=== PATIENT | female | born 2000 | race Caucasian/White ===

== ENCOUNTER 2020-05-21 13:33 | Emergency (ER) | payer OTHER, SELFPAY ==
[2020-05-21 14:13] VITALS: BP 122/63; PULSE 64; RESP 16; TEMP 36.6; O2SAT 99; BMI 39.3
--- NOTE | 2020-05-21 15:28 | XR_ITS ---
EXAMINATION: XR CHEST CLINICAL INFORMATION: Chest pain COMPARISON: None TECHNIQUE: 2 views of the chest were obtained. FINDINGS: No significant abnormality is noted involving the heart, lungs, mediastinum, bony thorax or soft tissues. XR/XR chest 2V IMPRESSION: Unremarkable chest exam
--- NOTE | 2020-05-21 15:28 | ECG_ITS ---
Test Reason : CHEST PAIN Blood Pressure : / mmHG Vent. Rate : 059 BPM Atrial Rate : 059 BPM P-R Int : 154 ms QRS Dur : 102 ms QT Int : 430 ms P-R-T Axes : 004 031 027 degrees QTc Int : 425 ms Sinus bradycardia Otherwise normal ECG No previous ECGs available Referred By: Naren Tolbert Electronically Signed By:Gabriel Watt
--- NOTE | 2020-05-21 15:28 | ED.GENADULT ---
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, it also hurts with a deep breath and when she touches the area, no cough no fever no shortness of breath no palpations no exertional symptoms Related Data Previous Rx's Medication Instructions Recorded ibuprofen 600 mg PO Q6H PRN #20 tab 05/21/20 Allergies Allergy/AdvReac Type Severity Reaction Status Date / Time No Known Allergies Allergy Verified 05/21/20 14:16 Review of Systems Review of Systems: Positive for chest pain with movement Negative for fever chills dizziness weakness fainting shortness of breath palpitations, no exertional symptoms no sweating, no cough no runny nose, no leg swelling, no calf pain or swelling, no skin rash, no numbness or weakness, no radiation of pain PMFSH Past Medical History Source: nursing notes reviewed Medical History Asthma Social History Social History Smoked in Last 30 Days: No Use of substances other than those prescribed or required for medical reasons: No Advance Directives: No Advance Directives Information Provided: Yes Physical Exam Vital Signs: Vital Signs: Last Vital Signs Temp 97.9 F 05/21/20 14:13 Pulse 64 05/21/20 14:13 Resp 16 05/21/20 14:13 BP 122/63 05/21/20 14:13 Pulse Ox 99 05/21/20 14:13 Body Mass Index 39.3 General appearance is no acute distress comfortable relaxed and cooperative A&O x3 Head is normocephalic atraumatic Neck is supple and nontender The chest is clear to auscultation bilaterally with full symmetric equal breath sounds There is tenderness to the right and middle section of the chest wall, there are no rashes to the chest wall skin is intact and normal color Pain is easily reproduced with deep breath and movement of the arms and chest wall Abdomen soft nontender Extremities there is no calf swelling or tenderness there is no edema Skin no rashes Neuro no focal deficit Course Course Course Narrative: Physical exam and history are consistent with injury or inflammation to muscles or cartilage of the chest wall Chest x-ray was normal EKG normal and patient was discharged diagnosis chest wall reproducible pain Medical Decision Making ECG Data Interpretation: EKG was sinus bradycardia with a rate of 59, QRS duration was normal QTC normal GA interval was normal, no acute ST changes no acute ischemic changes Discharge Plan Discharge Clinical Impression: Chest wall pain Patient Disposition: Home, Self-Care Additional Instructions: EKG and chest x-ray were normal You most likely have either a muscle injury from lifting or an inflammation of muscle and cartilage in the chest wall no sign of any dangerous condition now Follow with primary doctor as needed Return any time if worse, or any concerns Prescriptions: New ibuprofen 600 mg tablet 600 mg PO Q6H PRN (Reason: pain) Qty: 20 RF: 0
== END 2020-05-21 17:27 | disposition home or self-care (01) ==
PROVIDERS: Emergency Provider Emergency Medicine; PCP Pediatrics
DX: R07.89 Other chest pain (principal)
CPT/HCPCS: 71046; 93005; 99283

== ENCOUNTER 2020-10-14 08:17 | Emergency (ER) | payer OTHER, SELFPAY ==
--- NOTE | ~2020-10-14 | XR_ITS ---
EXAMINATION: XR CHEST CLINICAL INFORMATION: Cough and wheezing COMPARISON: None TECHNIQUE: 2 views of the chest were obtained. FINDINGS: No significant abnormality is noted involving the heart, lungs, mediastinum, bony thorax or soft tissues. XR/XR chest 2V IMPRESSION: Unremarkable chest examination.
[2020-10-14 08:19] VITALS: BP 140/78; PULSE 77; RESP 18; TEMP 36.6; O2SAT 99; BMI 39.9
--- NOTE | 2020-10-14 08:45 | ED.ASTHMA ---
HPI - Asthma General Chief Complaint: Upper Respiratory Symptoms Stated Complaint: asthma Time Seen by Provider: 10/14/20 08:35 Source: patient Mode of arrival: ambulatory Limitations: no limitations History of Present Illness MD complaint: asthma attack , shortness of breath and wheezing Onset (ago): day(s) (Three days) Severity: moderate Context: none known Associated symptoms: productive cough Asthma History: childhood onset Treatments Prior to Arrival: other (She has tried her nebulized solutions last she took was last night, Flovent, albuterol inhaler and Symbicort no symptomatic relief) Related Data Current Asthma Therapy: inhaled bronchodilator and inhaled steroid Previous Rx's Medication Instructions Recorded ibuprofen 600 mg PO Q6H PRN #20 tab 05/21/20 albuterol sulfate 0.63 mg INHALATION QID PRN #75 ml 10/14/20 albuterol sulfate 1 inh INHALATION QID PRN #8.5 g 10/14/20 azithromycin See Rx Instructions .ROUTE 10/14/20 .COMPLEX #6 tab prednisone 40 mg PO DAILY 5 Days #10 tab 10/14/20 Allergies Allergy/AdvReac Type Severity Reaction Status Date / Time No Known Allergies Allergy Verified 05/21/20 14:16 Review of Systems Review of Systems: Constitutional : denies med noncompliance, no history of PE or DVT, denies recent travel, No Fever, No Chills ENT/Mouth : No Hoarseness, No sore throat, No Rhinorrhea Eyes: No Redness, No Discharge, No Vision Changes Cardiovascular : No Chest Pain, No SOB, No Dyspnea on Exertion, No Edema, no pleurisy, Respiratory : Positive cough with sputum production, positive wheezing, no stridor, no hemoptysis, Gastrointestinal : No Nausea, No Vomiting, No Diarrhea, No abdominal Pain Genitourinary : No Dysuria, No Hematuria Musculoskeletal : No joint pain, No Myalgias Extremities: no extremity swelling /pain Skin : No rash, no itching, no swelling Neuro : No Weakness, No Numbness, No Headache Psych : No anxiety, depression Heme/Lymph: No Bruising, No Bleeding Endocrine : No Polyuria, No Polydipsia Yes all other systems are reviewed and are negative [facility] Past Medical History Attestation statement: The following information was validated with the patient. Medical History Asthma Social History Social History Alcohol intake: current Alcohol intake frequency: holidays/special occasions only Alcohol type: wine Patient Tobacco Use Status: Never used Tobacco Use of substances other than those prescribed or required for medical reasons: Yes Substance Use Type: Marijuana Substance Use Frequency: Socially Last Used Substance: Days (ago) Advance Directives: Yes Advance Directives Information Provided: Yes Advance Directives on File: No Patient : No Physical Exam Vital Signs: Vital Signs: Last Vital Signs Temp 98.5 F 10/14/20 09:04 Pulse 64 10/14/20 09:47 Resp 20 10/14/20 09:04 BP 119/78 10/14/20 09:04 Pulse Ox 100 10/14/20 09:04 Body Mass Index 39.9 vital signs have been reviewed as normal and appeared to be correct. Blood pressure normal. Heart rate normal. Respiration rate normal. Temperature normal. Oxygen saturation normal. Appearance: Alert. Oriented X3. Mild respiratory acute distress otherwise no other acute distress. Head: Normal external exam. Normocephalic. Eyes: PERRLA. EOMI. Conjunctiva and sclera normal. Eyelids normal. ENT: Pharynx normal. Uvula midline. Moist mucous membranes. Neck: Normal inspection. Neck supple. FROM. No adenopathy. No meningeal signs. CVS: Normal heart rate and rhythm. Heart sound normal. No murmurs noted. Pulses normal throughout. Respiratory: Mild respiratory distress with decreased breath sounds and expiratory wheezing throughout. Painless inspiration. Breath sounds normal. No rales/rhonchi noted. Chest nontender. No accessory muscle usage noted or decreased air movement noted. Back: Full range of motion noted. Skin: Skin warm and dry. Normal skin color. Normal skin turgor. No rashes/lesions/lacerations noted. Extremities: Extremities exhibit normal range of motion. No lower extremity edema is noted. Extremities nontender. Neuro: Oriented X 3. No motor deficit. No sensory deficit. Reflexes normal. Normal steady gait. Course Course Course Narrative: 8:45am - a 20-year-old female presenting to the ED with an asthma exacerbation for the past 3 days worse today despite using her albuterol inhaler, Flovent inhaler, Symbicort inhaler and nebulized solutions at home. She has never been hospitalized or intubated for her asthma. Denies recent travel or sick contacts. Denies any other symptoms complaints or concerns at this time. Plan: Chest x-ray, COVID swab provide an hour long breathing treatment and 60 mg of p.o. prednisone and re-evaluate. Reevaluation(s) Reevaluation #1: - chest x-ray within normal limits no acute processes are noted. COVID swab negative. Patient received 2 hour long breathing treatment and 60 mg of p.o. prednisone and improvement in exam. She also reports she feels better. Will DC home with symptomatic treatment antibiotics and steroids and instructions return if any new or worsening symptoms follow-up with primary care provider. Patient understands agrees with this plan. Time: 10:40 [facility] - Asthma Medical Records Attestation: I reviewed the patient's medical records. Lab Data Attestation: I reviewed the patient's lab results. Labs: Lab Results 10/14/20 Range/Units 08:44 COVID-19 ([facility]) Negative (Negative) COVID-19 Clin Com See Note Imaging Data Chest x-ray: Attestation: I personally reviewed and interpreted this imaging study as follows: Radiologist's impression: FINDINGS: No significant abnormality is noted involving the heart, lungs, mediastinum, bony thorax or soft tissues. XR/XR chest 2V IMPRESSION: Unremarkable chest examination. Discharge Plan Discharge Clinical Impression: Acute bronchitis with bronchospasm, Bilateral wheezing, Asthma exacerbation Patient Disposition: Home, Self-Care Instructions: Acute Bronchitis (ED), Bronchospasm (ED), Wheezing (ED) Prescriptions: New albuterol sulfate 0.63 mg/3 mL solution for nebulization 0.63 mg inhalation QID PRN (Reason: shortness of breath or wheezing) Qty: 75 RF: 0 azithromycin 250 mg tablet See Rx Instructions .ROUTE .COMPLEX Qty: 6 RF: 0 prednisone 20 mg tablet 40 mg PO DAILY 5 Days Qty: 10 RF: 0 albuterol sulfate 90 mcg/actuation HFA aerosol inhaler 1 inh inhalation QID PRN (Reason: shortness of breath or wheezing) Qty: 8.5 RF: 0 No Action ibuprofen 600 mg tablet 600 mg PO Q6H PRN (Reason: pain) Qty: 20 RF: 0 Referrals: Lenore Gonzales MD [Primary Care Provider] - 2 days Stand Alone Forms: Work/School Release Print Language: Bulgarian
[2020-10-14] MEDS: predniSONE 20 MG TABLET 60 MG PO (08:49)
--- NOTE | 2020-10-14 08:55 | PC.NURSE ---
Pt alert, oriented x3, vss. Pt reports to ED with Asthma exacerbation starting 3 days ago. She states it started as dry cough and progressed to a productive cough with last night being the worst. The pt reports using her nebulizer and pump inhaler with no relief. Pt currently has positive wheezing and a productive cough. No sob, no respiratory distress noted. COVID swab done, medication given as documented, Pt currently in xray.
[2020-10-14 09:04] VITALS: BP 119/78; PULSE 78; RESP 20; TEMP 36.9; O2SAT 100
[2020-10-14 09:05] LABS: COVID-19 Test Negative (Negative); IDNOW Serial# 9DD0AD1C
[2020-10-14] MEDS: Albuterol Sulfate (0.083%) 2.5 MG/3 ML VIAL.NEB 10 MG INHALE (09:44)
[2020-10-14 09:47] VITALS: PULSE 64; O2SAT 98
--- NOTE | 2020-10-14 10:00 | PC.NURSE ---
Respiratory Therapist at bedside, pt getting nebulizer tx at this time.
== END 2020-10-14 11:12 | disposition home or self-care (01) ==
PROVIDERS: Physician Assistant Medical; Emergency Provider Emergency Medicine; PCP Pediatrics
DX: J20.9 Acute bronchitis, unspecified (principal); J45.901 Unspecified asthma with (acute) exacerbation; Z79.899 Other long term (current) drug therapy; Z20.822 Contact with and (suspected) exposure to COVID-19
CPT/HCPCS: 36415; 71046; 87635; 94640; 94644; 99284